=== PATIENT | female | born 1985 | race Caucasian/White ===

== ENCOUNTER 2019-06-02 15:10 | Inpatient (IN) | payer OTHER, MEDICAID, SELFPAY ==
--- NOTE | 2019-06-02 15:43 | PM.OBHP.1 ---
OB HPI Date/Time Date of admission: 06/02/19 Date Patient Seen: 06/02/19 Time Patient Seen: 15:30 History of Present Condition Chief complaint: Observation : 1 Para: 0 Estimated Date of Delivery: 06/13/19 Estimated Gestational Age (weeks): 38 Narrative: Nadine Ma is a 34 year old @38+2 with minimal care but a per MIKE of 4/3 per patient, presenting after SROM at home one hour ago. The patient reports I broke my water for clear fluid, and it's still coming out. She reports contractions but has not been timing them, denies vaginal bleeding, reports normal movement, and denies any other symptoms obstetrical or otherwise. Her has been complicated by minimal care- she reports that she saw a care provider in [place] a few times, maybe last like a few months ago, but we had a disagreement and I stopped going. She reports that she was told that she's due on 06/12, but she isn't sure whether the date is from an ultrasound, since she does not remember her LMP or have regular menses. The patient denies any vaginal bleeding, contractions, infections, or drug use during the . She reported to EMS that she used methamphetamine a few months ago, but strenuously denies drug use to L&D staff, reporting that I was around that stuff but I didn't use it, it was just in the vape smoke. She reports that she was treated for syphilis prior to the , but that she had completed treatment prior to . She denies any other pregnancies including miscarriage or , denies a history of PID, uterine fibroids, ovarian cysts, denies any significant medical or surgical history, denies any contributory family history, and denies any FOB history. The patient reports that she lives in [place] and was here visiting the FOB for a few days. History of Present care: other (Unclear- patient reports care but unable to name provider) Dating criteria: other (growth/dating US on admission) Obstetrical complications: other Evaluation Evaluation Baseline heart rate: 155 Variability: Minimal (3-5) monitor accelerations: Absent monitor decelerations: Absent Category of Tracing: II Cervical dilation (cm): 1 Cervical effacement (%): 100 station: -2 Comments: grossly ruptured for light [facility] Review of Systems Constitutional Constitutional: Reports system reviewed and no additional complaints, except as documented Cardiovascular Cardiovascular: Reports system reviewed; no additional complaints, except as documented Respiratory Respiratory: Reports system reviewed and no additional complaints, except as documented Gastrointestinal Gastrointestinal: Reports abdominal pain, Reports cramping, Denies nausea and Denies vomiting Genitourinary Genitourinary: Reports as per HPI Neurologic Neurologic: Reports system reviewed and no additional complaints, except as documented Exam Vital Signs (past 8 hours): 138/88, HR 126, T Const General: in distress (painful contractions, patient vocal about unaware contractions were painful), anxious, disheveled and other (appears older than stated age) Orientation: alert, awake and oriented x3 Resp Auscultation: clear to auscultation bilaterally Cardio Rate: regular rate Rhythm: regular rhythm GI Inspection: obesity Palpation: soft and tender (suprapubic tenderness) External Female Exam: external appearance normal Manual OB Exam: dilated 1, effaced fully and station -2 Presentation: vertex Estimated Weight (lbs): 7 Other: formal US pending, confirms approx. 38 weeks gestation per US staff. Cephalic presentation, posterior/fundal placenta Skin General: no rashes or lesions noted Assessment and Plan Assessment and Plan Assessment and Plan narrative: This patient presents grossly ruptured, at term by bedside ultrasound limited by inaccessible head measurement and by MIKE provided by patient, grossly ruptured. The patient will have labs and a urine tox screen drawn now, will be given IV fluids for cat 2 EFM, and will be augmented with pitocin if she does not prove to be in labor. No GBS ppx warranted for GBS unknown at term. - cEFM, toco - IV fluids and labs as above - Plan for pitocin if not laboring - Patient considering pain relief options
[2019-06-02 15:56] LABS: Add Manual Diff / Slide Review NO; Basophils Absolute Auto 100 /uL (0-100); Basophils Percent Auto 0.4 % (0-2); Eosinophils Absolute Auto 100 /uL (0-450); Eosinophils Percent Auto 0.6 % (2-4); Hematocrit 39.2 % (36-46); Hemoglobin 13.3 g/dL (12.0-16.0); Lymphocytes Absolute Auto 2000 /uL (1100-4500); Lymphocytes Percent Auto 14.9 % (25-40); Mean Corpuscular HGB Conc 33.9 % (30-36); Mean Corpuscular Hemoglobin 30.1 PG (26-34); Mean Corpuscular Volume 88.6 fL (80-100); Monocytes Absolute Auto 700 /uL (0-900); Monocytes Percent Auto 5.2 % (3-14); Neutrophils Absolute Auto 10400 /uL (1500-7000); Neutrophils Percent Auto 78.9 % (50-75); Platelet Count 254 X10^3/uL (150-400); Red Blood Cell Count 4.42 X10^6/uL (4.0-5.2); Red Cell Distribution Width 13.2 % (11.6-14.8); White Blood Cell Count 13.1 X10^3/uL (4.5-11.0)
--- NOTE | 2019-06-02 16:02 | DI.US.S_ITS ---
PROCEDURE: US OB LIMITED INDICATIONS: DATING OUTSIDE/PRIOR DATING DATA: Last menstrual period (LMP): Not known. LMP-based estimated date of delivery (MIKE): Not applicable. First dating scan (date and location): 06/02/19. Estimated date of delivery (MIKE) from first dating scan: 06/14/19. TECHNIQUE: Real-time scanning was performed of the fetus, with image documentation and biometric measurements. Endovaginal scanning: Performed COMPARISON: None. FINDINGS: Image quality limited secondary to patient in active labor. General: A single living intrauterine gestation is present. Presentation: Vertex Placenta: Placental position is posterior fundal, without previa. Amniotic fluid index: 20.1 cm, normal range is 5-24 cm. heart rate: 144 beats per minute. Maternal cervical canal: Not measured. biometrics: Biparietal diameter: Not seen Head circumference: Not seen Abdominal circumference: 40 weeks 0 days Femur length: 37 weeks 2 days Estimated gestational age from initial scan: not applicable. Composite gestational age from present scan: 38 weeks 2 days Estimated weight and percentile: Not applicable Measurement variability for biometric dating: +/- 7 days from 14 weeks to 15 weeks 6 days gestation, +/- 10 days from 16 weeks to 21 weeks 6 days gestation, +/- 2 weeks from 22 weeks to 27 weeks 6 days gestation, +/- 3 weeks for 28 weeks gestation or later. weight reference: 4500 g or EFW >90/95% is considered macrosomia or large for gestational age. EFW <10% is small for gestational age. EFW 5% or less is considered intra-uterine growth restriction. Other: Not applicable. IMPRESSION: Single living intrauterine gestation with estimated ultrasound gestational of 38 weeks 2 days correspond to ultrasound MIKE of 06/14/2019. Dictated by: Nanette Mcintosh MD, PhD on 06/02/2019 at 17:44 Approved by: Nanette Mcintosh MD, PhD on 06/02/2019 at 17:46
[2019-06-02 16:13] LABS: Appearance Urine UA CLOUDY; Bilirubin Urine UA 1+ (NEGATIVE); Color Urine UA YELLOW; Glucose Urine UA NEGATIVE (Negative); Ketones Urine UA NEGATIVE (NEGATIVE); Leukocyte Esterase Urine UA 1+ (NEGATIVE); Nitrite Urine UA NEGATIVE (Negative); Occult Blood Urine UA 2+ (Negative); Protein Urine UA 1+ (Negative); Specific Gravity Urine UA 1.025 (1.000-1.035); Urobilinogen Urine UA 0.2 E.U./dL (0.2)
[2019-06-02 16:19] LABS: Ictotest Urine Positive (Negative); RBC Urine 1-5/HPF (0-5/HPF); WBC Urine 5-10/HPF (0-5/HPF)
[2019-06-02 16:20] LABS: Amorphous Sediment Urine 2+; Bacteria Urine Moderate (10-30); Culture Indicated Urine Specimen Cultured; Mucus Urine 2+ (Negative); Squamous Epithelial Cell Urine 1-5 /HPF (0-5/HPF)
[2019-06-02 16:51] LABS: Hepatitis B Surface Antigen NEGATIVE s/c (NEGATIVE)
[2019-06-02 17:02] LABS: HIV 1 & 2 Ab/Ag 4th Gen Combo NEGATIVE (NEGATIVE); Hep C Virus Ab w/Reflex Quant NEGATIVE s/c (NEGATIVE)
[2019-06-02 17:30] VITALS: BP 138/88
[2019-06-02] MEDS: LACTATED RINGERS 1,000 ML 100 ML IV (20:05)
--- NOTE | 2019-06-02 20:28 | PM.OBPNLAB ---
Date/Time Date Patient Seen: 06/02/19 Pain Control Pain control: epidural Comments: Patient presently being consented for epidural Pelvic Exam Comments: Irregular contractions- exam deferred due to SROM Status status: Category l Heart Rate Baseline: 150 Monitor Accelerations: Present Monitor Decelerations: Absent Monitor Variability: Moderate Assessment and Plan Assessment: other Plan: begin patient augmentation Comments: This patient is SROMed, not uncomfortable, and is for epidural and then pitocin augmentation. Will add on PEC labs as patient has elevated blood pressures, though differential for this includes pain and other social factors.
[2019-06-02] MEDS: OXYTOCIN PREMIX 30 UNIT/500 ML PLAST..BAG IV (20:30)
[2019-06-02 21:17] LABS: Strep Grp B PCR POS for Grp B Strep
[2019-06-02 21:43] LABS: Add Manual Diff / Slide Review NO; Basophils Absolute Auto 100 /uL (0-100); Basophils Percent Auto 0.3 % (0-2); Eosinophils Absolute Auto 0 /uL (0-450); Eosinophils Percent Auto 0.1 % (2-4); Hematocrit 38.1 % (36-46); Lymphocytes Absolute Auto 1300 /uL (1100-4500); Lymphocytes Percent Auto 8.2 % (25-40); Mean Corpuscular HGB Conc 34.1 % (30-36); Mean Corpuscular Hemoglobin 30.3 PG (26-34); Mean Corpuscular Volume 88.7 fL (80-100); Monocytes Absolute Auto 600 /uL (0-900); Monocytes Percent Auto 4.1 % (3-14); Neutrophils Absolute Auto 13500 /uL (1500-7000); Neutrophils Percent Auto 87.3 % (50-75); Platelet Count 238 X10^3/uL (150-400); Red Blood Cell Count 4.29 X10^6/uL (4.0-5.2); Red Cell Distribution Width 13.2 % (11.6-14.8); White Blood Cell Count 15.5 X10^3/uL (4.5-11.0)
[2019-06-02 21:56] LABS: Aspartate Aminotransferase 37 IU/L (14-36); BUN Creatinine Ratio 10.6 (6-22); Blood Urea Nitrogen 12 mg/dL (7-17); Estimated Glomerular Filt Rate 54.8 mL/min (>60); Uric Acid 7.3 mg/dL (2.5-6.2)
[2019-06-02] MEDS: PENICILLIN G POTASSIUM 5,000,000 UNIT in DEXTROSE 5% IN WATER 250 ML IV (22:11)
[2019-06-02 22:20] LABS: UR Morphine/Opiate cutoff 300 Negative (Negative); Ur Creatinine Normal (Normal); Ur Specific Gravity Normal (Normal); Urine Amphetamines Positive (Negative); Urine Barbiturates Negative (Negative); Urine Benzodiazepines Negative (Negative); Urine Cocaine Negative (Negative); Urine MDMA Negative (Negative); Urine Methadone Negative (Negative); Urine Methamphetamines Positive (Negative); Urine Oxycodone Negative (Negative); Urine Phencyclidine Negative (Negative); Urine Tetrahydrocannabinol Negative (Negative); Urine Tricyclic Antidepressant Negative (Negative); Urine pH Normal (Normal)
[2019-06-02 22:32] LABS: Creatinine Urine Random 207.9 mg/dL; Protein (Total) Urine Random 29 mg/dL (0-12); Protein Creatinine Ratio Urine 0.13 GRAM/24H
[2019-06-02 22:41] VITALS: BP 172/78; PULSE 114
[2019-06-02] MEDS: LABETALOL 20 MG/4 ML SYRINGE IV (22:41)
[2019-06-03] MEDS: BENZOCAINE/MENTHOL 1 LOZ PKT 1 EACH PO (01:05)
[2019-06-03] MEDS: MAG HYDROX/ALUM/SIMETH 30 ML UDC PO (02:25)
[2019-06-03] MEDS: PENICILLIN G POTASSIUM 3,000,000 UNIT/50 ML FROZ.PIGGY 100 UNIT IV ×3 (02:39→09:49)
[2019-06-03] MEDS: LACTATED RINGERS 1,000 ML 100 ML IV (03:04)
[2019-06-03] MEDS: NIFEdipine 10 MG CAPSULE PO (03:25)
--- NOTE | 2019-06-03 07:29 | PM.OBPNLAB ---
Date/Time Date Patient Seen: 06/03/19 Time Patient Seen: 07:29 Pain Control Pain control: epidural Comments: Patient reports that her epidural is working well for her. Pelvic Exam Dilation (cm): 6 Effacement (%): 100 station: 0 Amniotic membrane status: Ruptured (thick meconium) Contractions Pitocin rate (mU/min): 16 Contraction frequency (min): 3 Contraction duration (min): 1 Contraction pattern: Regular Status status: Category l Heart Rate Baseline: 140 Assessment and Plan Assessment: induction ongoing Plan: continuous present management Comments: This patient is a 34yo @38 weeks by patient report c/w bedside ultrasound on admission, presenting after PROM for thick meconium yesterday at approx 1500 and being induced with pitocin. Patient is slowly progressing into active labor on 16 of , and baby is tolerating induction well with a cat 1 EFM throughout the night. The patient received an epidural due to poor The patient intermittently endorses methamphetamine use, and has a positive u tox screen for methamphetamine. Her clinical presentation since admission is consistent with recent methamphetamine use, clouding the diagnostic picture with regards to her hypertension, tachycardia and lab abnormalities. PEC labs are being repeated this AM, and she will be started on 100mg PO labetalol BID. As her meth use becomes more remote, her vital signs are beginning to normalize. The patient was averse to PO hydration and severely dehydrated, and will have strict I&O followed today using her lawrence catheter. Anticipate vaginal delivery.
[2019-06-03 08:24] VITALS: BP 130/67
[2019-06-03] MEDS: LABETALOL 100 MG TABLET PO ×2 (08:24→21:01)
[2019-06-03 08:39] LABS: RPR Screen Non Reactive (Non Reactive); Varicella IgG Antibody 1717 index (Immune >165)
[2019-06-03 08:56] LABS: Add Manual Diff / Slide Review NO; Basophils Absolute Auto 100 /uL (0-100); Basophils Percent Auto 0.5 % (0-2); Eosinophils Absolute Auto 0 /uL (0-450); Eosinophils Percent Auto 0.1 % (2-4); Hematocrit 36.7 % (36-46); Hemoglobin 12.2 g/dL (12.0-16.0); Lymphocytes Absolute Auto 1200 /uL (1100-4500); Lymphocytes Percent Auto 8.1 % (25-40); Mean Corpuscular HGB Conc 33.2 % (30-36); Mean Corpuscular Hemoglobin 29.7 PG (26-34); Mean Corpuscular Volume 89.4 fL (80-100); Monocytes Absolute Auto 600 /uL (0-900); Monocytes Percent Auto 3.9 % (3-14); Neutrophils Absolute Auto 13000 /uL (1500-7000); Neutrophils Percent Auto 87.4 % (50-75); Platelet Count 238 X10^3/uL (150-400); Red Cell Distribution Width 12.9 % (11.6-14.8); White Blood Cell Count 14.9 X10^3/uL (4.5-11.0)
[2019-06-03 09:09] LABS: Aspartate Aminotransferase 50 IU/L (14-36); BUN Creatinine Ratio 12.2 (6-22); Blood Urea Nitrogen 15 mg/dL (7-17); Estimated Glomerular Filt Rate 49.7 mL/min (>60); Uric Acid 7.8 mg/dL (2.5-6.2)
--- NOTE | 2019-06-03 09:41 | PM.OBPNLAB ---
Date/Time Date Patient Seen: 06/03/19 Time Patient Seen: 09:30 Pain Control Pain control: epidural Pelvic Exam Dilation (cm): 9 Effacement (%): 100 station: 0 Amniotic membrane status: Ruptured (thick meconium) Contractions Contraction frequency (min): 3 Contraction pattern: Regular Status status: Category l Monitor Accelerations: Present Monitor Decelerations: Absent Monitor Variability: Moderate Assessment and Plan Assessment: induction ongoing Plan: continuous present management Comments: Repeat PEC labs reviewed and largely stable, with normal platelets and BP well controlled on PO labetolol. Patient continues to be somewhat under the influence of methamphetamine, which can cause tachycardia and hypertension, and has impaired kidney function in the setting of drug use, stated aversion to PO hydration on admission, and unknown medical history with a normal urine protein/creatinine ratio. Given the patient's denial of PIH symptoms, normal DTRs, and other medical history, a diagnosis of preeclampsia is not definitive. Magnesium therapy would cause respiratory depression in a fetus already affected by methamphetamine, thick meconium, and GBS, along with minimal care and uncertain dating. Maternal metabolism of magnesium is likely to be impaired given her kidney function, leading to increased risk of magnesium toxicity. In the setting of anticipated imminent delivery, magnesium therapy will be held, and the plan of care reassessed after delivery.
--- NOTE | 2019-06-03 15:31 | PM.OBPRVD ---
 Events: No Care (minimal care, unknown provider) and Meconium Stained Fluid Labor & Delivery Delivery date: 06/03/19 Intrapartal events: Prolonged 2nd Stage > 2.5 hours, Abnormal Labs, Abnormal Presentation, Acceleration and Deceleration Cervical ripening method: none Induction method: per pitocin protocol Route of delivery: L&D Laceration Description: Perineal - 1st Degree Estimated blood loss (mL): 300 Anesthesia type: Epidural Complications: This patient presented at approx 38 weeks with minimal care, with EDC provided to patient at one of her 2 early visits and confirmed by bedside ultrasound. The patient was grossly ruptured for thick meconium on admission, and was induced with pitocin after being found to be 1cm dilated and leonie irregularly. The patient was visibly under the influence of methamphetamine on admission, and a urine drug screen was positive for this. She was hypertensive and tachycardic with an elevated creatinine, but otherwise had no signs, symptoms, or other lab abnormalities c/w preeclampsia. Her hypertension and tachycardia improved with IV and PO labetolol, and magnesium was deferred in the setting of unclear clinical presentation for preeclampsia with clear clinical downsides to magnesium treatment of mom and baby. The patient progressed on pitocin to fully dilated, and pushed for 3 hours before a delivery of a healthy baby girl c/b a shoulder dystocia. The shoulders delivering in a transverse presentation, and were converted to an anterior/posterior orientation with a combination suprapubic pressure and corkscrew maneuvering. This plus Yuliya positioning allowed delivery of the shoulders with less than 30 seconds of impaction. No nuchal cord was present. Delayed cord clamping was performed. A 1st degree perineal laceration was repaired in a figure of 8 fashion with 3-0 vicryl. After 30 minutes of expectant management, the placenta required manual extraction, but was easily reached and removed in 1 piece. A dose of 2g IV Ancef was administered, along with 30 u pitocin. There were no other immediate complications. Preeclampsia labs were repeated and are pending, and a UA from the catheterized specimen was repeated. [place] Baby 1: Infant gender: Female Presentation: vertex position: Right Occiput Anterior (Direct OA) Placenta delivery description: Manual Removal cord vessel description: 3 Vessels score (1 min): 7 score (5 min): 9 Narrative: weight 7#11 Plan for aftercare: Preeclampsia labs including a creatinine, repeat UA from a catheterized specimen, close monitoring of vitals, and close monitoring of urine output. Patient to continue PO labetalol 100mg BID. Elevated blood pressures immediately were found to be the result of a small cuff improperly placed on the patient's flexed forearm- repeat BP with a properly sized and placed cuff showed a blood pressure of 127/66.
[2019-06-03 16:02] LABS: Add Manual Diff / Slide Review NO; Basophils Absolute Auto 100 /uL (0-100); Basophils Percent Auto 0.4 % (0-2); Eosinophils Absolute Auto 0 /uL (0-450); Eosinophils Percent Auto 0.2 % (2-4); Hematocrit 36.6 % (36-46); Hemoglobin 12.2 g/dL (12.0-16.0); Lymphocytes Absolute Auto 1100 /uL (1100-4500); Mean Corpuscular HGB Conc 33.4 % (30-36); Mean Corpuscular Hemoglobin 29.6 PG (26-34); Mean Corpuscular Volume 88.8 fL (80-100); Monocytes Absolute Auto 500 /uL (0-900); Monocytes Percent Auto 3.4 % (3-14); Neutrophils Absolute Auto 13500 /uL (1500-7000); Platelet Count 230 X10^3/uL (150-400); Red Blood Cell Count 4.12 X10^6/uL (4.0-5.2); Red Cell Distribution Width 13.4 % (11.6-14.8); White Blood Cell Count 15.2 X10^3/uL (4.5-11.0)
[2019-06-03 16:04] LABS: Bilirubin Urine UA NEGATIVE (NEGATIVE); Color Urine UA RED; Glucose Urine UA NEGATIVE (Negative); Ketones Urine UA TRACE (NEGATIVE); Leukocyte Esterase Urine UA 1+ (NEGATIVE); Nitrite Urine UA NEGATIVE (Negative); Occult Blood Urine UA 3+ (Negative); Protein Urine UA 1+ (Negative); Urobilinogen Urine UA 0.2 E.U./dL (0.2)
[2019-06-03 16:06] LABS: Appearance Urine UA OTHER; pH Urine UA 6.5 (4.5-8.0)
[2019-06-03 16:13] LABS: Aspartate Aminotransferase 53 IU/L (14-36); BUN Creatinine Ratio 13.4 (6-22); Blood Urea Nitrogen 19 mg/dL (7-17); Estimated Glomerular Filt Rate 42.1 mL/min (>60); Uric Acid 8.5 mg/dL (2.5-6.2)
[2019-06-03 16:15] LABS: RBC Urine >100/HPF (0-5/HPF)
[2019-06-03 16:16] LABS: Amorphous Sediment Urine 2+; Bacteria Urine Moderate (10-30); Culture Indicated Urine Specimen Cultured; Mucus Urine 1+ (Negative); Squamous Epithelial Cell Urine 0-1 /HPF (0-5/HPF); WBC Urine 10-30/HPF (0-5/HPF)
[2019-06-03] MEDS: CEFTRIAXONE 1 GM/50 ML FROZ.PIGGY IV (17:26)
[2019-06-03] MEDS: ACETAMINOPHEN 325 MG TABLET 650 MG PO (21:00)
[2019-06-03 23:36] LABS: UR Morphine/Opiate cutoff 300 Negative (Negative); Ur Creatinine Normal (Normal); Ur Specific Gravity Normal (Normal); Urine Amphetamines Negative (Negative); Urine Barbiturates Negative (Negative); Urine Benzodiazepines Negative (Negative); Urine Cocaine Negative (Negative); Urine MDMA Negative (Negative); Urine Methadone Negative (Negative); Urine Methamphetamines Positive (Negative); Urine Oxycodone Negative (Negative); Urine Phencyclidine Negative (Negative); Urine Tetrahydrocannabinol Negative (Negative); Urine Tricyclic Antidepressant Negative (Negative); Urine pH Normal (Normal)
[2019-06-04] MEDS: ACETAMINOPHEN 325 MG TABLET 650 MG PO ×2 (04:05→12:21)
--- NOTE | 2019-06-04 07:54 | P.PNOB_ITS ---
Subjective - OB Subjective Patient comments: pain well controlled (cramping pain), tolerating diet and flatus present [place] baby status: doing well feeding status: exclusively bottle feeding Narrative: Patient is a 34-year-old para 1 day 1 after vaginal delivery, complicated by minimal care, methamphetamine use, shoulder dystocia, and retained placenta. The patient's vital signs of significantly improved on a low dose of labetalol, and the patient is diuresing, voiding up to 1 L of urine per void. The patient's symptoms are not consistent with preeclampsia, and repeat straight cath UA is consistent with urinary tract infection. The patient yesterday was able to more coherently endorse a history of frequent urinary tract infections, and was administered a dose of ceftriaxone 1 these results appeared. Today, the patient reports musculoskeletal back pain, no fevers, mild weakness in the setting of having only eating ice cream since delivery, but is ambulating, voiding, tolerating p.o., and has moderate lochia. She denies headaches, visual changes, chest pain, or trouble breathing. The patient is able to tolerate p.o. beyond ice cream, but prefers ?junk food?. We discussed the importance of a balanced diet. Date Patient Seen: 06/04/19 Time Patient Seen: 07:59 Exam Vital Signs (past 8 hours): 120/79, heart rate 99, temperature 99? F Const General: cooperative, comfortable and other (Patient resting in bed, reports feeling fatigued) Resp Effort & Inspection: normal respiratory effort Auscultation: clear to auscultation bilaterally Cardio Rate: regular rate Rhythm: regular rhythm GI Palpation: soft and No tender Skin General: no rashes or lesions noted Objective Labs Result Diagrams: 06/03/19 15:51 06/03/19 15:51 Labs: Laboratory Results - last 24 hr 06/02/19 06/02/19 06/03/19 15:43 15:43 08:44 WBC 14.9 H RBC 4.10 Hgb 12.2 Hct 36.7 MCV 89.4 MCH 29.7 MCHC 33.2 RDW 12.9 Plt Count 238 Neut % (Auto) 87.4 H Lymph % (Auto) 8.1 L [place] % (Auto) 3.9 Eos % (Auto) 0.1 L Baso % (Auto) 0.5 Neut # (Auto) 55344 H Lymph # (Auto) 1200 [place] # (Auto) 600 Eos # (Auto) 0 Baso # (Auto) 100 BUN Creatinine Estimated GFR BUN/Creatinine Ratio Uric Acid AST Urine Color Urine Appearance Urine pH Ur Specific [place] Urine Protein Urine Glucose (UA) Urine Ketones Urine Occult Blood Urine Nitrate Urine Bilirubin Urine Urobilinogen Ur Leukocyte Esterase Urine RBC Urine WBC Ur Squamous Epith Cells Amorphous Sediment Urine Bacteria Urine Mucus Ur Culture Indicated? U Opiates 300ng/mL cut Ur Oxycodone Screen Urine Methadone Screen Ur Barbiturates Screen U Tricyclic Antidepress Ur Phencyclidine Scrn Ur Amphetamines Screen U Methamphetamines Scrn Ur MDMA Scrn (Ecstasy) U Benzodiazepines Scrn Urine Cocaine Screen U Marijuana (THC) Screen Serum VDRL Non reactive VZV IgG Antibody 17106/03/19 06/03/19 06/03/19 08:44 15:48 15:48 WBC RBC Hgb Hct MCV MCH MCHC RDW Plt Count Neut % (Auto) Lymph % (Auto) [place] % (Auto) Eos % (Auto) Baso % (Auto) Neut # (Auto) Lymph # (Auto) [place] # (Auto) Eos # (Auto) Baso # (Auto) BUN 15 Creatinine 1.23 H Estimated GFR 49.7 L BUN/Creatinine Ratio 12.2 Uric Acid 7.8 H AST 50 H Urine Color Red Urine Appearance Other Urine pH 6.5 Ur Specific [place] 1.010 Urine Protein 1+ H Urine Glucose (UA) Negative Urine Ketones Trace H Urine Occult Blood 3+ H Urine Nitrate Negative Urine Bilirubin Negative Urine Urobilinogen 0.2 Ur Leukocyte Esterase 1+ H Urine RBC >100/hpf H D Urine WBC 10-30/hpf H Ur Squamous Epith Cells 0-1 /hpf Amorphous Sediment 2+ Urine Bacteria Moderate (10-30) H Urine Mucus 1+ H Ur Culture Indicated? Specimen cultured U Opiates 300ng/mL cut Negative Ur Oxycodone Screen Negative Urine Methadone Screen Negative Ur Barbiturates Screen Negative U Tricyclic Antidepress Negative Ur Phencyclidine Scrn Negative Ur Amphetamines Screen Negative U Methamphetamines Scrn Positive H Ur MDMA Scrn (Ecstasy) Negative U Benzodiazepines Scrn Negative Urine Cocaine Screen Negative U Marijuana (THC) Screen Negative Serum VDRL VZV IgG Antibody 06/03/19 06/03/19 15:51 15:51 WBC 15.2 H RBC 4.12 Hgb 12.2 Hct 36.6 MCV 88.8 MCH 29.6 MCHC 33.4 RDW 13.4 Plt Count 230 Neut % (Auto) 89.0 H Lymph % (Auto) 7.0 L [place] % (Auto) 3.4 Eos % (Auto) 0.2 L Baso % (Auto) 0.4 Neut # (Auto) 40965 H Lymph # (Auto) 1100 [place] # (Auto) 500 Eos # (Auto) 0 Baso # (Auto) 100 BUN 19 H Creatinine 1.42 H Estimated GFR 42.1 L BUN/Creatinine Ratio 13.4 Uric Acid 8.5 H AST 53 H Urine Color Urine Appearance Urine pH Ur Specific [place] Urine Protein Urine Glucose (UA) Urine Ketones Urine Occult Blood Urine Nitrate Urine Bilirubin Urine Urobilinogen Ur Leukocyte Esterase Urine RBC Urine WBC Ur Squamous Epith Cells Amorphous Sediment Urine Bacteria Urine Mucus Ur Culture Indicated? U Opiates 300ng/mL cut Ur Oxycodone Screen Urine Methadone Screen Ur Barbiturates Screen U Tricyclic Antidepress Ur Phencyclidine Scrn Ur Amphetamines Screen U Methamphetamines Scrn Ur MDMA Scrn (Ecstasy) U Benzodiazepines Scrn Urine Cocaine Screen U Marijuana (THC) Screen Serum VDRL VZV IgG Antibody Assessment & Plan Plan day: 1 plan OB: routine care Comments: This patient is day 1 status post vaginal delivery in the setting of methamphetamine use, minimal care, shoulder dystocia, and retained placenta. labs indicate a urinary tract infection, the p atient was administered 1 g of ceftriaxone . The patient has been hypertensive and tachycardic in the setting of coming in intoxicated with methamphetamine, and overall, labs did not clearly indicate a diagnosis of preeclampsia. The patient has been receiving 100 mg b.i.d. of p.o. labetalol, has diuresed significantly overnight, and her vital signs are normalizing. The most recent blood pressure indicates that this morning's labetalol should be held, the patient's vitals will continue to be closely monitored. The patient is able to provide more history as her intoxication clears, and she indicated a history of frequent urinary tract infections. Repeat labs are pending this mor chivo, with further plan of care pending these results. In the meantime, the patient was encouraged to p.o. hydrate, maintain a healthy diet, and ambulate. The differential diagnosis and plan of care was discussed with the patient and her partner, who vocalized understanding. Time Spent With Patient Time: Total time spent is greater than 50% in coordination of care (as documented) at patient's floor/unit and/or counseling patient: Time with patient: 15-24 minutes
[2019-06-04 10:08] LABS: Add Manual Diff / Slide Review NO; Basophils Absolute Auto 0 /uL (0-100); Basophils Percent Auto 0.4 % (0-2); Eosinophils Absolute Auto 200 /uL (0-450); Eosinophils Percent Auto 1.6 % (2-4); Hematocrit 31.4 % (36-46); Hemoglobin 10.7 g/dL (12.0-16.0); Lymphocytes Absolute Auto 1600 /uL (1100-4500); Lymphocytes Percent Auto 15.3 % (25-40); Mean Corpuscular HGB Conc 34.2 % (30-36); Mean Corpuscular Hemoglobin 30.5 PG (26-34); Mean Corpuscular Volume 89.3 fL (80-100); Monocytes Absolute Auto 800 /uL (0-900); Neutrophils Absolute Auto 7700 /uL (1500-7000); Neutrophils Percent Auto 74.7 % (50-75); Platelet Count 212 X10^3/uL (150-400); Red Blood Cell Count 3.52 X10^6/uL (4.0-5.2); Red Cell Distribution Width 13.5 % (11.6-14.8); White Blood Cell Count 10.4 X10^3/uL (4.5-11.0)
[2019-06-04 10:18] LABS: Aspartate Aminotransferase 43 IU/L (14-36); BUN Creatinine Ratio 15.5 (6-22); Blood Urea Nitrogen 18 mg/dL (7-17); Estimated Glomerular Filt Rate 53.2 mL/min (>60); Uric Acid 8.9 mg/dL (2.5-6.2)
--- NOTE | 2019-06-04 12:56 | P.PNOB_ITS ---
Subjective - OB Subjective Patient comments: no complaints, pain well controlled, tolerating diet and flatus present Narrative: Patient reports fatigue this AM, is ambulating, tolerating PO, voiding copiously, mild to moderate lochia, passing flatus. Patient's intoxication is resolved this AM, able to have a coherent conversation with good decision making capacity and discussion of risks and benefits. We discussed the risk of worsening hypertension or kidney disease after discharge, consequences of worsening disease including and signs and symptoms to watch out for. We discussed the importance of follow up in clinic within the week for a BP check. The patient vocalized understanding of the above, but also desires to be with her baby in [place] in the NICU. Date Patient Seen: 06/04/19 Time Patient Seen: 13:05 Exam Vital Signs (past 8 hours): 135/86, HR 99, Afebrile Const General: cooperative, anxious (appropriately sad after baby was transferred) and disheveled Skin General: no rashes or lesions noted Objective Labs Result Diagrams: 06/04/19 09:59 06/04/19 09:59 Labs: Laboratory Results - last 24 hr 06/03/19 06/03/19 06/03/19 15:48 15:48 15:51 WBC 15.2 H RBC 4.12 Hgb 12.2 Hct 36.6 MCV 88.8 MCH 29.6 MCHC 33.4 RDW 13.4 Plt Count 230 Neut % (Auto) 89.0 H Lymph % (Auto) 7.0 L [place] % (Auto) 3.4 Eos % (Auto) 0.2 L Baso % (Auto) 0.4 Neut # (Auto) 36257 H Lymph # (Auto) 1100 [place] # (Auto) 500 Eos # (Auto) 0 Baso # (Auto) 100 BUN Creatinine Estimated GFR BUN/Creatinine Ratio Uric Acid AST Urine Color Red Urine Appearance Other Urine pH 6.5 Ur Specific [place] 1.010 Urine Protein 1+ H Urine Glucose (UA) Negative Urine Ketones Trace H Urine Occult Blood 3+ H Urine Nitrate Negative Urine Bilirubin Negative Urine Urobilinogen 0.2 Ur Leukocyte Esterase 1+ H Urine RBC >100/hpf H D Urine WBC 10-30/hpf H Ur Squamous Epith Cells 0-1 /hpf Amorphous Sediment 2+ Urine Bacteria Moderate (10-30) H Urine Mucus 1+ H Ur Culture Indicated? Specimen cultured U Opiates 300ng/mL cut Negative Ur Oxycodone Screen Negative Urine Methadone Screen Negative Ur Barbiturates Screen Negative U Tricyclic Antidepress Negative Ur Phencyclidine Scrn Negative Ur Amphetamines Screen Negative U Methamphetamines Scrn Positive H Ur MDMA Scrn (Ecstasy) Negative U Benzodiazepines Scrn Negative Urine Cocaine Screen Negative U Marijuana (THC) Screen Negative 06/03/19 06/04/19 06/04/19 15:51 09:59 09:59 WBC 10.4 RBC 3.52 L Hgb 10.7 L Hct 31.4 L MCV 89.3 MCH 30.5 MCHC 34.2 RDW 13.5 Plt Count 212 Neut % (Auto) 74.7 Lymph % (Auto) 15.3 L [place] % (Auto) 8.0 Eos % (Auto) 1.6 L Baso % (Auto) 0.4 Neut # (Auto) 7700 H Lymph # (Auto) 1600 [place] # (Auto) 800 Eos # (Auto) 200 Baso # (Auto) 0 BUN 19 H 18 H Creatinine 1.42 H 1.16 H Estimated GFR 42.1 L 53.2 L BUN/Creatinine Ratio 13.4 15.5 Uric Acid 8.5 H 8.9 H AST 53 H 43 H Urine Color Urine Appearance Urine pH Ur Specific [place] Urine Protein Urine Glucose (UA) Urine Ketones Urine Occult Blood Urine Nitrate Urine Bilirubin Urine Urobilinogen Ur Leukocyte Esterase Urine RBC Urine WBC Ur Squamous Epith Cells Amorphous Sediment Urine Bacteria Urine Mucus Ur Culture Indicated? U Opiates 300ng/mL cut Ur Oxycodone Screen Urine Methadone Screen Ur Barbiturates Screen U Tricyclic Antidepress Ur Phencyclidine Scrn Ur Amphetamines Screen U Methamphetamines Scrn Ur MDMA Scrn (Ecstasy) U Benzodiazepines Scrn Urine Cocaine Screen U Marijuana (THC) Screen Assessment & Plan Plan day: 1 plan OB: routine care Comments: This patient's vital signs and lab abnormalities are improving as her mental status improves. A catheterized UA was deeply concerning for UTI despite no growth on culture, and the patient will receive another dose of ceftriaxone prior to discharge. The patient's BP is improved without medication, her tachyc ardia is improved, and her other lab abnormalities are stable or normalizing. The patient strongly desires discharge to be with her baby in the NICU. We discussed the dangers of discharge vs monitoring until tomorrow at length, and the patient vocalized understanding of the risks of an underlying PIH etiology. Precautions for return were reviewed strenuously, and the patient will return within the week for a BP check in clinic. Time Spent With Patient Time: Total time spent is greater than 50% in coordination of care (as documented) at patient's floor/unit and/or counseling patient: Time with patient: 15-24 minutes
--- NOTE | 2019-06-04 13:12 | P.DS_ITS ---
Discharge Providers Provider Date of admission: 06/02/19 15:10 Discharge Date: 06/04/19 Consults: 06/04/19 15:27 Consult to [employer]ice Routine Comment: Discharge provider: Silvia Payne MD Summary Hospital Course Date Patient Seen: 06/04/19 Procedures: Hospital Course: This patient presented grossly ruptured with PROM, with thin progressing to thick meconium. The patient was augmented with pitocin, progressed to fully dilated, and was delivered of a healthy baby girl, with delivery complicated by shoulder dystocia due to transverse presentation of the shoulders, and retained placenta, manually extracted. The patient's initial presentation was complicated by methamphetamine intoxication, with minimal care and signs of UTI. The patient was treated with IV antibiotics for presumed UTI. When the effects of the drugs wore off, her hypertension and tachycardia resolved, and clinical suspicion for PIH is low. The patient was discharged with precautions and scheduled follow up to follow her after transfer to a site with a NICU, due to meconium aspiration syndrome and methamphetamine withdrawal. The patient had JASPER at presentation, with no medical follow up and unclear etiology in the setting of multiple contributory factors, but this was resolving at the time of discharge. Peripartum Data Infant Delivery Method: Natural Vaginal Laceration description: None complications: none [place] 1: Gender: Female Disposition of : NICU Discharge Diagnosis (1) Vaginal delivery: Status: Acute (2) Methamphetamine abuse: Status: Acute (3) JASPER (acute kidney injury): Status: Acute (4) UTI (urinary tract infection): Status: Acute Status at Discharge Cognitive/behavioral status at discharge: oriented Functional status at discharge: independent ambulation Overall status at discharge: patient is progressing back to baseline Time Spent with Patient Time attestation: Total time spent providing and/or coordinating discharge services: Time spent: Greater than 30 minutes Objective Labs Result Diagrams: 06/04/19 09:59 06/04/19 09:59 Labs: Laboratory Results - last 24 hr 06/03/19 06/03/19 06/03/19 15:48 15:48 15:51 WBC 15.2 H RBC 4.12 Hgb 12.2 Hct 36.6 MCV 88.8 MCH 29.6 MCHC 33.4 RDW 13.4 Plt Count 230 Neut % (Auto) 89.0 H Lymph % (Auto) 7.0 L [place] % (Auto) 3.4 Eos % (Auto) 0.2 L Baso % (Auto) 0.4 Neut # (Auto) 96182 H Lymph # (Auto) 1100 [place] # (Auto) 500 Eos # (Auto) 0 Baso # (Auto) 100 BUN Creatinine Estimated GFR BUN/Creatinine Ratio Uric Acid AST Urine Color Red Urine Appearance Other Urine pH 6.5 Ur Specific [place] 1.010 Urine Protein 1+ H Urine Glucose (UA) Negative Urine Ketones Trace H Urine Occult Blood 3+ H Urine Nitrate Negative Urine Bilirubin Negative Urine Urobilinogen 0.2 Ur Leukocyte Esterase 1+ H Urine RBC >100/hpf H D Urine WBC 10-30/hpf H Ur Squamous Epith Cells 0-1 /hpf Amorphous Sediment 2+ Urine Bacteria Moderate (10-30) H Urine Mucus 1+ H Ur Culture Indicated? Specimen cultured U Opiates 300ng/mL cut Negative Ur Oxycodone Screen Negative Urine Methadone Screen Negative Ur Barbiturates Screen Negative U Tricyclic Antidepress Negative Ur Phencyclidine Scrn Negative Ur Amphetamines Screen Negative U Methamphetamines Scrn Positive H Ur MDMA Scrn (Ecstasy) Negative U Benzodiazepines Scrn Negative Urine Cocaine Screen Negative U Marijuana (THC) Screen Negative 06/03/19 06/04/19 06/04/19 15:51 09:59 09:59 WBC 10.4 RBC 3.52 L Hgb 10.7 L Hct 31.4 L MCV 89.3 MCH 30.5 MCHC 34.2 RDW 13.5 Plt Count 212 Neut % (Auto) 74.7 Lymph % (Auto) 15.3 L [place] % (Auto) 8.0 Eos % (Auto) 1.6 L Baso % (Auto) 0.4 Neut # (Auto) 7700 H Lymph # (Auto) 1600 [place] # (Auto) 800 Eos # (Auto) 200 Baso # (Auto) 0 BUN 19 H 18 H Creatinine 1.42 H 1.16 H Estimated GFR 42.1 L 53.2 L BUN/Creatinine Ratio 13.4 15.5 Uric Acid 8.5 H 8.9 H AST 53 H 43 H Urine Color Urine Appearance Urine pH Ur Specific [place] Urine Protein Urine Glucose (UA) Urine Ketones Urine Occult Blood Urine Nitrate Urine Bilirubin Urine Urobilinogen Ur Leukocyte Esterase Urine RBC Urine WBC Ur Squamous Epith Cells Amorphous Sediment Urine Bacteria Urine Mucus Ur Culture Indicated? U Opiates 300ng/mL cut Ur Oxycodone Screen Urine Methadone Screen Ur Barbiturates Screen U Tricyclic Antidepress Ur Phencyclidine Scrn Ur Amphetamines Screen U Methamphetamines Scrn Ur MDMA Scrn (Ecstasy) U Benzodiazepines Scrn Urine Cocaine Screen U Marijuana (THC) Screen Discharge Plan Discharge Plan Patient Disposition: Home Discharge orders & Medications Prescriptions: Continued PNV [id number] [] 28 mg iron- 800 mcg tablet 1 tab PO DAILY RF: 0 Follow up/Referrals: Silvia Payne MD [Physician] - 1 Week (Appointment with on Sunday,June at 11:30.(check in time 11:15 am; use phone to call at [phone] and someone will come and escort you to appointment.) Diet/Activity/Treatments Diet: Regular Activity: Nothing in the vagina for 6 weeks. Avoid heavy lifting for 6 weeks. If you have increasing bleeding, fevers, chills, nausea, vomiting, back pain, headaches, visual changes, or any other symptoms or complaints, call or come to the ED. Skin/Wound/Dressing Care Report to your healthcare provider any signs of infection, such as:: chills, fever, night sweats, increased pain, unusual drainage and unusual redness Visit Report/Discharge Packet Instructions: DI for Labor and Delivery, Vaginal Visit Report Forms: Patient Portal/API, Stroke Signs & Symptoms Discharges patient from system. Discharge Date/Time: 06/04/19 17:30
[2019-06-04] MEDS: cefTRIAXone 1,000 MG VIAL 1000 MG IM (13:36)
--- NOTE | 2019-06-04 15:03 | CM.SWNOTE ---
CHART WRITER Note: Received referral from center staff on 06-03-19 at approximately 4:00pm. They report that this 34yr old female came to [facility] in active labor. Reason for referral 1) Positive Methamphetamine screen 2) Minimal if no pre-claudia care. girl delivered via vaginal delivery on 06-03-19. scores 7/9. Met with patient this AM explained CHART WRITER role. [place] in nursery during visit. Patient alert and oriented during interview. Patient reports that this is her first . Patient thought that she could not get . Patient reports that this was not a planned . Patient admits to previous meth use via smoking it. However, denies doing it during this ? Patient reports that she was vaping a few days ago with friends and that meth was in it and she did not know? Patient resides with significant other Flaco in [place]. Patient reports that he is FOB but that they are not that close. Patient asked what her plans were when comes home? Patient reports that she is currently in transition and that she plans to stay at her friend (Angelica) in [place] upon d/c. Patient made aware that [facility] report made due to positive drug screen and lack of pre- care. Patient teary during the discussion about [facility] Patient worried that they will take my baby. Patient reports having all needed supplies at home? however, her actual home is going to be at her friend's. Odalys is friend whom resides at [address] [place] [address]. [id number] # [phone]. Patient made aware this AM that most likely will be transferred to higher level of care due to withdrawal. Patient teary and reports that she will follow to wherever she is taken. [facility] assigned medical social worker is Blanca Hernandez. All above information provided to her with faxed information. . Blanca reports that she will be in contact with patient and Jacquelyn Mortensen. DEMAR Goldberg Discharge Planning/Care Management CM Discharge Assessment Start: 06/04/19 14:55 Freq: Status: Active Protocol: Document 06/04/19 14:55 KJS (Rec: 06/04/19 15:03 KJS [id number]) Discharge Planning Assessment Assigned [employer] DEMAR Goldberg Advance Directives? No History Provided By Patient,Medical Record Has Patient been admitted in last 30 No days? Comment Housing unclear at this time. Household Members significant other Comment Fl[employer] [place] # [phone] Type of transporation used prior to Drives own vehicle admit Independent with ADL's Yes Is patient alert and oriented? Yes Caregiver for Another Yes: [place] delivered on 06-02 (female) Comment None known Barriers to Discharge No Comment Patient discharging from [facility] today. tranferred to [facility] in [place]. Discharge Plan Home Whiteboard Updated in Patient Room with Yes name and ext. # of [employer] Review Status In Process Next Review Type Continued Stay Review
[2019-06-04 16:36] VITALS: BP 134/80; PULSE 90; RESP 16; TEMP 36.8
== END 2019-06-04 17:30 | disposition home or self-care (01) | DRG 560 ==
PROVIDERS: Admitting Provider Obstetrics & Gynecology; Referring Provider Obstetrics & Gynecology; Visit Provider Obstetrics & Gynecology
DX: O99.324 Drug use complicating childbirth (principal); N17.9 Acute kidney failure, unspecified; F15.20 Other stimulant dependence, uncomplicated; O23.43 Unspecified infection of urinary tract in pregnancy, third trimester; O63.1 Prolonged second stage (of labor); Z3A.38 38 weeks gestation of pregnancy; O42.02 Full-term premature rupture of membranes, onset of labor within 24 hours of rupture; Z37.0 Single live birth; O77.0 Labor and delivery complicated by meconium in amniotic fluid; O70.0 First degree perineal laceration during delivery; O66.0 Obstructed labor due to shoulder dystocia; O32.8XX0 Maternal care for other malpresentation of fetus, not applicable or unspecified; O99.284 Endocrine, nutritional and metabolic diseases complicating childbirth
CPT/HCPCS: 01967; 36415; 59050; 59409; 76815; 80055; 80305; 81001; 82570; 84156; 84450; 84550; 85025; 86787; 86803; 86850; 86900; 86901; 87086; 87389; 87653; 99222; 99238; G0379; J0696; J2540; J2590